=== PATIENT | female | born 1960 | race Hispanic/Latino ===

== ENCOUNTER 2017-01-11 10:57 | Outpatient (CLI) | payer BC ==
--- NOTE | 2017-01-14 13:57 | Ultrasound Report ---
RIGHT UPPER QUADRANT ABDOMINAL ULTRASOUND: 01/11/17 10:57:00 CLINICAL: Elevated liver enzymes. FINDINGS: High-resolution ultrasound demonstrated a small liver with normal overall echogenicity. No liver mass or nodularity. Normal bile ducts status post cholecystectomy.. Normal hepatic vasculature and inferior vena cava. The common bile duct measures 3.0 mm diameter. The pancreas is enlarged and diffusely echogenic. No pancreatic fluid collection or mass. Normal upper abdominal aorta. A nonobstructive right lower pole renal calculus measures 8 mm. The right renal collecting system is nondilated. The right kidney measures 11.5 x 5.8 x 4.7 cm. The renal parenchyma measures 1.6 cm in thickness. Normal echogenicity of the right kidney. No ascites or mass. IMPRESSION: 1. Small but otherwise normal liver. 2. Status post cholecystectomy. 3. Fatty infiltration of the pancreas. 4. A nonobstructive 8mm right lower pole renal calculus.
== END 2017-01-11 10:58 | disposition home or self-care (01) ==
LOC: SPVWC 10:57
PROVIDERS: ATTEND Internal Medicine Endocrinology, Diabetes & Metabolism
DX: N20.0 Calculus of kidney (principal); K86.89 Other specified diseases of pancreas; Z90.49 Acquired absence of other specified parts of digestive tract
CPT/HCPCS: 76705